=== PATIENT | male | born 1985 ===

== ENCOUNTER 2022-01-02 18:12 | Emergency (ER) | payer SELFPAY | END 2022-01-02 19:30 | disposition left against medical advice (07) | LOC: ED 18:12 | DX: Z53.21 Procedure and treatment not carried out due to patient leaving prior to being seen by health care provider (principal); V89.2XXA Person injured in unspecified motor-vehicle accident, traffic, initial encounter; Y93.89 Activity, other specified; Y92.89 Other specified places as the place of occurrence of the external cause; Y99.8 Other external cause status ==